=== PATIENT | female | born 1960 | race Caucasian/White ===

== ENCOUNTER → 2020-10-17 | Outpatient (CLI) | payer BC, OTHER ==
[2020-10-17 17:41] LABS: RED BLOOD COUNT 4.04 M/UL (4.00-5.10)
[2020-10-17 18:06] LABS: BUN/CREATININE RATIO 18 (0-10)
[2020-10-19 07:10] LABS: VITAMIN D, 25-HYDROXY 33.7 ng/mL (30.0-100.0)
== END ==
LOC: LAB 17:12
PROVIDERS: Internal Medicine
DX: M05.79 Rheumatoid arthritis with rheumatoid factor of multiple sites without organ or systems involvement (principal); E55.9 Vitamin D deficiency, unspecified; E53.8 Deficiency of other specified B group vitamins; R53.83 Other fatigue; Z79.899 Other long term (current) drug therapy
CPT/HCPCS: 36415; 80053; 82607; 82728; 82746; 85025; 85652; 86140